=== PATIENT | female | born 1975 | race Two or more races ===

== ENCOUNTER 2025-02-16 09:00 | Emergency (ER) | payer MEDICAID, SELFPAY ==
[2025-02-16 09:01] VITALS: BMI 26.2
[2025-02-16 09:07] VITALS: BP 157/94; PULSE 72; RESP 20; TEMP 36.6; O2SAT 97
--- NOTE | 2025-02-16 09:12 | EKG_ITS ---
[facility] Test Date: 2025-02-16 Pat Name: JASON LANDAVERDE Department: Room: - Gender: Female [employer]: : 1975 Requested By: Royer Rebolledo (RHONDA) Order Number: [id number] Reading MD: Royer Rebolledo (RHONDA) Measurements Intervals [place] Rate: 71 P: 62 FL: 139 QRS: 38 QRSD: 80 T: 46 QT: 418 QTc: 456 Interpretive Statements SINUS RHYTHM No previous ECG available for comparison /store/S0/[id number].pdf
--- NOTE | 2025-02-16 09:12 | XR_ITS ---
Examination: Left femur 2 views Technique: AP lateral left femur 2 views Exam date and time: February 16, 2025, 1013 hrs. Indications: Left-sided leg pain onset today. Findings: No hip fracture or dislocation Shaft of the femur intact Impression: No acute fracture
--- NOTE | 2025-02-16 09:12 | XR_ITS ---
Examination: PA lateral chest 2 views Technique: Upright PA lateral chest 2 views Exam date and time: February 16, 2025 at 1010 hrs. Indications: Left-sided arm pain Leg pain and headache today Findings: Normal heart size No lobar pneumonia or pulmonary edema Moderate osteopenia Impression: No lobar pneumonia or pulmonary edema
--- NOTE | 2025-02-16 09:12 | XR_ITS ---
Examination: CT brain head without contrast. 2-D sagittal coronal reconstructions Date and time of exam:February 16, 2025 0938 hrs. Indications: Onset left arm and leg numbness beginning 8 hours ago CTDI: vol (mGy):45.9 DLP: (mGycm):884 Technique: Multiple CT axial sections of the brain have been obtained, 5 mm slice thickness. Contrast has not been administered. 2-D sagittal, coronal reconstructions have been obtained Low dose protocols were performed. One or more of the following dose reduction techniques were used; automated exposure control, adjustment of the mA and/or KV according to patient size, use of iterative reconstruction technique. Findings: No significant ventricular enlargement. Intra-axial or extra-axial hemorrhage density is not seen. No mass effect or midline shift Basal cisterns are not remarkable. Fourth ventricle is midline. Cranial vault intact. Impression: Negative for acute hemorrhage, mass effect or midline shift As clinically warranted, brain MRI follow-up would best assess for demyelinating disease, acute ischemic change
--- NOTE | 2025-02-16 09:13 | PD.EDRME ---
Rapid Medical Screening Exam RME Arrival date/time: 02/16/25 09:00 49-year-old female presents to the emergency department today with complaints of left-sided arm pain, left-sided leg pain and headache Chief Complaint: General Adult/Misc Complain Vital signs: Vital Signs Temperature 97.8 F 02/16/25 09:07 Pulse Rate 72 02/16/25 09:07 Respiratory Rate 20 02/16/25 09:07 Blood Pressure 157/94 H 02/16/25 09:07 Pulse Oximetry (%) 97 02/16/25 09:07 Oxygen Delivery Method Room Air 02/16/25 09:07
[2025-02-16 10:14] LABS: Collection Type, Urine Clean Catch; RBC,Urine 0 /hpf (0-3)
[2025-02-16 10:24] LABS: Basophils # (Auto) 0.1 Thou/mm3 (0.0-0.2); Basophils % (Auto) 1 % (0-2.5); Eosinophils # (Auto) 0.2 Thou/mm3 (0.0-0.5); Eosinophils % (Auto) 2 % (0-10); Hematocrit 38.4 % (36.0-46.0); Hemoglobin 12.6 g/dL (12.0-16.0); Immature Granulocytes % (Auto) 0 % (0-0); Lymphocytes # (Auto) 3.2 Thou/mm3 (1.0-4.8); Lymphocytes % (Auto) 50 % (10-50); Mean Corpuscular HGB Conc 32.8 g/dl (31.0-37.0); Mean Corpuscular Hemoglobin 28.8 pg (25.0-35.0); Mean Corpuscular Volume 88 fL (80-100); Monocytes # (Auto) 0.5 Thou/mm3 (0.0-0.8); Monocytes % (Auto) 8 % (0-12); Neutrophils # (Auto) 2.5 Thou/mm3 (1.8-7.7); Neutrophils % (Auto) 39 % (37-80); Nucleated Red Blood Cell % 0 /100 WBC (0); Platelet Count 261 Thou/mm3 (140-440); RDW Standard Deviation 42.9 fL (36.4-46.3); Red Blood Count 4.37 Miln/mm3 (4.00-5.20); White Blood Count 6.3 Thou/mm3 (3.6-11.0)
[2025-02-16 10:35] LABS: INR 1.1 (0.9-1.3); Partial Thromboplastin Time 25.1 Seconds (22.0-36.0); Prothrombin Time 11.6 Seconds (9.0-12.2)
[2025-02-16 10:41] LABS: B-Type Natriuretic Peptide < 20 pg/mL (0-100)
[2025-02-16 10:47] LABS: Amorphous Crystals,Urine Present (Absent); Bilirubin,Urine Negative (Negative); Blood,Urine Negative (Negative); Color,Urine Lt-Yellow (Lt Yel-Yel); Glucose, Urine Negative (Negative); Ketones,Urine Negative (Negative); Leukocyte Esterase,Urine Negative (Negative); Nitrite,Urine Negative (Negative); PH,Urine 7.5 (5.0-7.0); Protein,Urine Negative (Neg - Trace); Specific Gravity,Urine 1.023 (1.001-1.035); Squamous Epithelial Cell,Urine 3 /hpf (0-5); Urobilinogen,Urine Negative mg/dL (0.0-1.0); WBC,Urine 1 /hpf (0-5)
[2025-02-16 10:50] LABS: Clarity,Urine Turbid (Clear/Hazy)
[2025-02-16 10:51] LABS: Alanine Aminotransferase 23 U/L (10-49); Albumin, Serum 4.2 gm/dL (3.5-5.0); Albumin/Globulin Ratio 1.3 (1.2-2.2); Alkaline Phosphatase 96 U/L (46-116); Aspartate Amino Transferase 18 U/L (0-34); BUN/Creatinine Ratio 20 Ratio (12-20); Bilirubin,Total 0.3 mg/dL (0.3-1.2); Blood Urea Nitrogen 14 mg/dL (9-23); Calcium 9.2 mg/dL (8.3-10.6); Calcium (Corrected) 9.2 mg/dL (8.5-10.1); Carbon Dioxide 26.7 mMol/L (20.0-31.0); Creatinine (Component) 0.7 mg/dL (0.6-1.3); Estimated Creatinine Clearance 89.5 mL/min (>60); Globulin 3.3 gm/dL (2.3-3.5); Glucose 119 mg/dL (74-106); Total Protein 7.5 gm/dL (5.7-8.2); Troponin I 0.031 ng/mL (0.0-0.045); eGFR > 60 See Note
[2025-02-16 10:53] LABS: HCG Qualitative,Urine Negative
[2025-02-16 10:54] LABS: Anion Gap 7 (7-16); Chloride 111 mMol/L (98-107); Osmolality,Calculated 290 (275-295); Potassium 4.6 mMol/L (3.4-5.1); Sodium 145 mMol/L (136-145)
[2025-02-16 11:17] LABS: Amphetamine/Methamp Scrn,U Positive (Negative); Barbiturate Screen,Urine Negative (Negative); Benzodiazepines Screen,Urine Negative (Negative); Benzoylecgonine Screen, Ur Negative (Negative); Fentanyl Screen,Urine Negative (Negative); Opiate Screen,Urine Negative (Negative); THC Screen,Urine Negative (Negative)
[2025-02-16 11:55] VITALS: BP 149/95; PULSE 72; RESP 18; TEMP 36.7; O2SAT 98
--- NOTE | 2025-02-16 12:34 | EDNOTE_ITS ---
ED Extremity Problem RME/HPI General Chief complaint: General Adult/Misc Complain Stated complaint: L) LEG/ARM HURTING X 8 HRS. Arrival date/time: 02/16/25 09:00 Limitations: no limitations RME / HPI RME / HPI Narrative: 02/16/25 09:00 49-year-old female presents to the emergency department today with complaints of left-sided arm pain, left-sided leg pain and headache DR. MIRANDA MAIN ED EVALUATION: 49 year old female presents to the Emergency Department with complaint of left lower extremity pain since this morning all of a sudden. She states it starts on her upper leg and radiates down. She states she also has left upper extremity pain, but less compared to the leg. Denies any injury but states maybe she slept on that side and got a cramp. Related Data Allergies Allergy/AdvReac Type Severity Reaction Status Date / Time iron (From [employer]) Allergy Verified 02/16/25 09:04 Review of Systems Review of Systems Systems Reviewed: All systems reviewed, normal except as documented Narrative Review of Systems: GEN: No fever, no chills, no weight loss EYES: No discharge, no visual changes, no pain HEENT: No ear pain, no congestion, no sore throat PULM: No shortness of breath, no cough, no congestion CV: No chest pain, no dyspnea on exertion, no palpitations GI: No nausea, no vomiting, no diarrhea, no pain, no constipation : No frequency, no urgency and no dysuria MUSC/SKEL: + left lower extremity pain, + left upper extremity painno back pain SKIN: No rash PSYCH: No hallucinations, no depression HEME/LYMPH: No easy bleeding or bruising tendencies NEURO: No weakness, no headache Past Medical History Social History SMOKING STATUS: Never smoker SUBSTANCE USE: does not use ALCOHOL: Never ED Exam General Limitations: Present no limitations General appearance: Present alert and in no apparent distress Head Head exam: Present atraumatic, normocephalic and normal inspection Eye Eye exam: Present normal appearance, PERRL and EOMI ENT ENT exam: Present normal exam, normal oropharynx and mucous membranes moist Neck Neck exam: Present normal inspection, full ROM and trachea midline Chest Chest inspection: Present normal inspection and symmetric chest wall rise Respiratory Respiratory exam: Present normal lung sounds bilaterally Cardiovascular Cardiovascular exam: Present regular rate, normal rhythm and normal heart sounds Abdominal Exam Abdominal exam: Present soft and normal bowel sounds Extremities Exam Extremities exam: Present full ROM, tenderness (posterior left knee tenderness) and other (tender in the sciatic notch on left side) Back Exam Back exam: Present normal inspection and full ROM Neurological Exam Neurological exam: Present alert, oriented X3 and CN II-XII intact Psychiatric Psychiatric exam: Present normal affect and normal mood Skin Skin exam: Present warm, dry, intact and normal color Course Quality Measures none Orders Category Date Time Status EKG (ED ONLY) *Do not use* NOW Care 02/16/25 09:[address] head/brain wo con Stat Exams 02/16/25 09:12 Completed EKG (ED Only) Stat Exams 02/16/25 09:12 Draft XR chest 2V Stat Exams 02/16/25 09:12 Completed XR femur LT 2V Stat Exams 02/16/25 09:12 Completed B-Type Natriuretic Peptide Stat Lab 02/16/25 09:40 Completed CBC Stat Lab 02/16/25 09:40 Completed Comprehensive Metabolic Panel Stat Lab 02/16/25 09:40 Completed Drug Screen,Urine Stat Lab 02/16/25 09:45 Completed HCG Qualitative,Urine Stat Lab 02/16/25 09:45 Completed Magnesium Stat Lab 02/16/25 09:40 Completed Partial Thromboplastin Time Stat Lab 02/16/25 09:40 Completed Prothrombin Time with INR Stat Lab 02/16/25 09:40 Completed Troponin I Stat Lab 02/16/25 09:40 Completed Urinalysis Stat Lab 02/16/25 09:45 Completed Ketorolac Inj [Toradol Inj] Med 02/16/25 12:35 Discontinued 30 mg IM X1 ONE Vital Signs Vital signs: Vital Signs Temperature 97.8 F 02/16/25 09:07 Pulse Rate 72 02/16/25 09:07 Respiratory Rate 20 02/16/25 09:07 Blood Pressure 157/94 H 02/16/25 09:07 Pulse Oximetry (%) 97 02/16/25 09:07 Oxygen Delivery Method Room Air 02/16/25 09:07 Extremity Problem MDM Narrative MDM Narrative:: Katina Lim am scribing for and in the presence of Dr. Miranda. Patient data External records reviewed:: None (no previous visits) Clinical information provided by:: patient Social determinants that could affect healthcare access:: none Patient has the following chronic illnesses:: No known PMHx, surgeries, daily medications, or known allergies. How is presenting disease/condition affected by chronic disease/condition?: no chronic disease Evaluation data The following diagnostics were reviewed and interpreted by me:: lab results, radiology exam(s) and EKG tracing(s) Lab and/or radiology exams considered but not ordered:: Recommended an ultrasound to rule out DVT but the patient would like to leave and come back another day for the ultrasound. Interpretation Summary: EKG#1: EKG at 0915 hours. Interpreted by me: sinus rhythm, rate 71 BMP, no acute changes, [place] interval 139 ms, QRS 80 ms, QT/QTc 418 /456, P-R-T axis 62, 38, and 46 RADIOLOGY Procedure(s): CT head/brain wo con Accession Number(s): [id number] cc: Kesha (RHONDA),Royer ELLIS; Blake Morales MD; NO PRIMARY/FAMILY,PHYSICIAN~ Examination: CT brain head without contrast. 2-D sagittal coronal reconstructions Date and time of exam:February 16, 2025 0938 hrs. Indications: Onset left arm and leg numbness beginning 8 hours ago CTDI: vol (mGy):45.9 DLP: (mGycm):884 Technique: Multiple CT axial sections of the brain have been obtained, 5 mm slice thickness. Contrast has not been administered. 2-D sagittal, coronal reconstructions have been obtained Low dose protocols were performed. One or more of the following dose reduction techniques were used; automated exposure control, adjustment of the mA and/or KV according to patient size, use of iterative reconstruction technique. Findings: No significant ventricular enlargement. Intra-axial or extra-axial hemorrhage density is not seen. No mass effect or midline shift Basal cisterns are not remarkable. Fourth ventricle is midline. Cranial vault intact. Impression: Negative for acute hemorrhage, mass effect or midline shift As clinically warranted, brain MRI follow-up would best assess for demyelinating disease, acute ischemic change Dictated By: Blake Morales MD - Procedure(s): XR femur LT 2V Accession Number(s): [id number] cc: Kesha (RHONDA),Royer ELLIS; Blake Morales MD; NO PRIMARY/FAMILY,PHYSICIAN~ Examination: Left femur 2 views Technique: AP lateral left femur 2 views Exam date and time: February 16, 2025, 1013 hrs. Indications: Left-sided leg pain onset today. Findings: No hip fracture or dislocation Shaft of the femur intact Impression: No acute fracture Dictated By: Blake Morales MD Procedure(s): XR chest 2V Accession Number(s): [id number] cc: Kesha (RHONDA),Royer ELLIS; Blake Morales MD; NO PRIMARY/FAMILY,PHYSICIAN~ Examination: PA lateral chest 2 views Technique: Upright PA lateral chest 2 views Exam date and time: February 16, 2025 at 1010 hrs. Indications: Left-sided arm pain Leg pain and headache today Findings: Normal heart size No lobar pneumonia or pulmonary edema Moderate osteopenia Impression: No lobar pneumonia or pulmonary edema Dictated By: Blake Morales MD Medications / Prescriptions Medications or Prescriptions considered but not ordered:: none Medication administrations:: Medication Administration History Discontinued Medications Ketorolac Tromethamine (Ketorolac Inj 60 Mg/2 Ml Vial) 30 mg IM X1 ONE Stop: 02/16/25 12:36 Last Admin: 02/16/25 13:10 Dose: Not Given Documented By: KAMLA Non-Admin Reason: Patient Refused none Consultations Consultation(s) initiated? (list below): No Diagnosis Extremity Problem Differential Diagnosis: other (musculoskeletal pain of left lower extremity, muscle strain, sciatica) Most likely diagnosis given after review of the tests above:: Musculoskeletal pain of left lower extremity Admission Indicated Admission indicated?: not indicated Explain why admission is indicated or not indicated:: This patient is choosing to leave against medical advice. I have personally explained to the patient that choosing to do so may result in permanent bodily harm or . I discussed a great length that without further evaluation and monitoring there may be unforeseen circumstances and deterioration causing permanent bodily harm or as a result of their choice. The patient is alert, oriented and competent at this time. The patient states that they are aware of the serious risks as explained, but they continue to wish to leave against medical advice. In light of their decision to leave AMA, follow-up has been arranged and they are aware of the importance of following up as instructed. They have been advised that they should return to the ED immediately if they change their mind at any time, or if their condition begins to change or worsen. Admission Request Was there a request for admission?: No Disposition Plan Disposition Plan: other (specify) (AMA) Discharge Plan Plan Patient Disposition: Left Against Medical Advice Prescriptions/Referrals Referrals: No Primary/Family,Physician [Primary Care Provider] - In 1 week Problem List Clinical Impression: Musculoskeletal pain of left lower extremity Patient/Caregiver Discharge Instructions Education Materials: ED Muscle Strain, Extremity Additional Instructions: Take Tylenol 500 mg 1-2 tabs every 6 hours as needed for pain PLUS Advil 200 mg gel tablets as needed for pain. Please follow-up with your primary care physician within a week. Return to the Emergency Department as needed. Print Language: Slovak
== END 2025-02-16 13:13 | disposition left against medical advice (07) ==
PROVIDERS: Nurse Practitioner Primary Care; Emergency Provider Family Medicine
DX: M79.605 Pain in left leg (principal); M79.602 Pain in left arm; Z53.29 Procedure and treatment not carried out because of patient's decision for other reasons; R51.9 Headache, unspecified
CPT/HCPCS: 36415; 70450; 71046; 73552; 80053; 80307; 81001; 81025; 83735; 83880; 84484; 85025; 85610; 85730; 93005; 99283